=== PATIENT | male | born 1990 | race African-American/Black ===

== ENCOUNTER 2024-01-17 22:23 | Emergency (ER) | payer OTHER ==
[~2024-01-17] VITALS: Ht 175.3 cm; Wt 96.2 kg
[2024-01-17 22:40] VITALS: PULSE 63; RESP 16; TEMP 98.5
[2024-01-17] MEDS ORDERED: TAMIFLU75 MG PO (23:24)
[2024-01-17] MEDS ORDERED: CLARITIN-D 121 EACH PO (23:25)
[2024-01-17] MEDS ORDERED: MUCINEX DM ER1 EACH PO (23:26)
[2024-01-17 23:45] VITALS: BP 122/77; PULSE 63; RESP 16; TEMP 98.5; O2SAT 98
[2024-01-17] MEDS: IBUPROFEN 600 MG TAB PO STA (23:54)
== END 2024-01-17 23:45 | disposition home or self-care (01) ==
LOC: FSED 22:35
DX: R05.9 Cough, unspecified (principal); J10.1 Influenza due to other identified influenza virus with other respiratory manifestations; B34.9 Viral infection, unspecified; R09.81 Nasal congestion; R51.9 Headache, unspecified; Z11.52 Encounter for screening for COVID-19
CPT/HCPCS: 0223U; 87400; 99283

== ENCOUNTER 2024-12-08 21:47 | Emergency (ER) | payer OTHER ==
[~2024-12-08] VITALS: Ht 177.8 cm; Wt 99.8 kg
[~2024-12-08 21:47] MED LIST: CLARITIN-D 121 EACH PO; MUCINEX DM ER1 EACH PO; TAMIFLU75 MG PO
[2024-12-08 22:09] VITALS: PULSE 92; RESP 18; TEMP 98.9
[2024-12-08 22:58] VITALS: BP 121/68; PULSE 92; RESP 18; TEMP 98; O2SAT 96
== END 2024-12-08 22:58 | disposition home or self-care (01) ==
LOC: FSED 21:58
DX: R05.9 Cough, unspecified (principal); U07.1 COVID-19
CPT/HCPCS: 0223U; 87400; 99282

== ENCOUNTER 2024-12-12 00:45 | Emergency (ER) | payer OTHER ==
[~2024-12-12] VITALS: Ht 177.8 cm; Wt 98.4 kg
[2024-12-12 03:06] VITALS: PULSE 66; RESP 17; TEMP 97.8
[2024-12-12 03:07] VITALS: BP 126/76; PULSE 66; RESP 17; TEMP 97.8; O2SAT 99
== END 2024-12-12 03:11 | disposition home or self-care (01) ==
LOC: FSED 01:01
DX: R05.9 Cough, unspecified (principal); U07.1 COVID-19
CPT/HCPCS: 0223U; 99283